=== PATIENT | male | born 1980 | race Hispanic/Latino ===

== ENCOUNTER 2020-02-27 14:50 | Emergency (ER) | payer SELFPAY ==
[2020-02-27 19:30] VITALS: BP 131/74
== END 2020-02-27 19:30 | DRG 914 ==
LOC: ED 14:50
PROC: 3E0T3BZ Introduction of Anesthetic Agent into Peripheral Nerves and Plexi, Percutaneous Approach (ICD-10-PCS; principal; 2020-02-27)
DX: S61.243A Puncture wound with foreign body of left middle finger without damage to nail, initial encounter (principal); S61.245A Puncture wound with foreign body of left ring finger without damage to nail, initial encounter; W45.0XXA Nail entering through skin, initial encounter; Y92.009 Unspecified place in unspecified non-institutional (private) residence as the place of occurrence of the external cause